=== PATIENT | male | born 1985 | race Caucasian/White ===

== ENCOUNTER 2024-12-13 11:46 | Outpatient (OUT) | payer OTHER, SELFPAY ==
--- OUTSIDE RECORDS SUMMARY | 2009-12-26 19:00 | XMS_ITS | Continuity of Care Document ---
Author Organization [facility] Address [address] [place] [address] Phone Care Team Providers Care Paint Tester Name Role Phone Visci DO DO, Jonathan Unavailable Unavailable Procedures Procedure Date OFFICE/OUTPATIENT VISIT, EST HEP B VACCINE, ADULT, IM Advance Directives Directive Yes / No Effective Date File Name No Information Encounters Encounter Description Practice Location Reason(s) For Visit Diagnoses Date Provider Providers Copied on Encounter OFFICE/OUTPATI ENT VISIT, [facility], [address], [place], [id number], tel:[phone] [facility] No Information Heaven CAUSEY Jonathan. [address], [place], [id number], [place]. tel:[phone] Family History Family Member Type Diagnosis Age At Onset No Information Payers Payer name Insurance type Covered green party ID Authoriza tion(s) No Information Social History [...]
--- OUTSIDE RECORDS SUMMARY | 2024-12-13 11:53 | XMS_ITS | Patient Health Record ---
Author Organization [facility] [place] Address [address] [place] [address] Care Team Providers Care Slide Fasteners Inspector Name Role Phone Chet Oliveira Primary Care Provider [phone] Allergies No Known Allergies Reason For Referral No Information Medications Medication SIG (Take, Route, Frequency, Duration) Notes Start Date End Date Status Fexofenadine HCl 60 MG 1 tablet Orally every bryson cortez; Duration: 90 days ActiveMupirocin 2 %1 application Externally Twice a day; Duration: 30 days 5ActiveMontelukast Sodium 10 MG1 tablet Orally at bedtime; Duration: 90 daysActiveMetoprolol Tartrate 25 MG1 tablet with food Orally Twice a day; Duration: 90 daysActiveAzelastine-Fluticasone 137-50 MCG/ACT1 spray in each nostril Nasally Twice a day; Duration: 90 daysActive Social [...] year?2 to 4 times a month (2 points)Dtxvmt6Chxdabrqkeohvc Negative Problems Problem Type SNOMED Code ICD Code Onset Dates Problem Status W/U Status Risk Notes Problem Allergic rhinitis (45957081) Allergic rhi nitis (J30.9) ActiveconfirmedProblemElevated blood pressure reading without diagnosis of hypertension (296108665)Borderline hypertension (R03.0)ActiveconfirmedProblem Acute bronchiolitis (5249982)Acute bronchiolitis (J21.9)Activeconfirmed Vital Signs Blood pressure diastolic 82 mm Hg 12/13/2024 Nrtbpd66 in12/13/2024lood pressure mm Hg12/13/20247346Jhewmp384.4 lbs 12/13/2024BMI29.03 kg/m212/13/2024 Encounters Encounter Location Date Provider Diagnosis [facility] [address] [place] [address] 12/18/[address] [facility] [place] [address] 03/10/2024Doug HoyAcute otitis media, unspecified otitis media type H66.90 [place] [address] [place] [address] 04/09/2024Doug HoyAcute otitis media, unspecified otitis media type H66.[address] [address] 04/10/2024Doug [place] [address] [place] [address]/Doug [address] [address]/Doug HoyAcute otitis media, unspecified otitis media type H66.90 and Otalgia, unspecified laterality H92.[address] [address]/04/2024 Chet HoyAcute non-recurrent sinusitis, unspecified location J01.90 and Nasal congestion R09.81 Assessments Encounter Date Diagnosis (ICD Code) Assessment Notes Treatment Notes Treatment Clinical Notes Section Notes 03/02/2024 Acute otitis media, unspecified otitis media type (ICD-10 - H66.90) You have been prescribed antibiotics for otitis media. Antibiotics may bother your stomach, so try taking them with a light meal (unless instructed otherwise by your pharmacist). It is important to take them until they are finished. You can use mbzw-dgz-qhbcpcr acetaminophen or ibuprofen if needed for pain. You have been prescribed antibiotics. You should be extra vigilant about hand washing or using hand patrol deputy sheriff gel. You should follow up with your Primary Care Physician or return to clinic if not improving in the next 3-5 days.5Acute non- recurrent sinusitis, unspecified location (ICD-10 - J01.90)Rest and drink more liquids, especially water. You may use a humidifier or vaporizer to help keep th e drainage moist. Soeg-vuz-ifpxpqf Nasal Saline may help the stuffy and runny nose. Use Ibuprofen and or Tylenol as needed for fever, chills, body aches or pain. Children 5 years old should not be given xmsn-nxc-lfildhe cough and cold medications such as guaifenesin and dextromethorphan. If you're over age 5, you may try ngrx-rcn-saqpler cold medications such as guaifenesin and dextromethorphan, [...] if symptoms do not improve within 3-5 days5Acute otitis media, unspecified otitis media type (ICD-10 - H66.90)5Acute otitis media, unspecified otitis media type (ICD-10 - H66.90)12/13/2024Nasal congestion (ICD- 10 - R09.81)03/02/2024Otalgia, unspecified laterality (ICD-10 - H92.09) Plan Of Treatment Pending Test Test Name Order Date CMP (COMPLETE METABOLIC PANEL) HEMOGLOBIN A1C (GLYCO) 06/04/2023 LIPID PANEL (CHOL/TRIG/HDL/LDL) 06/04/19 24 CBC WITH DIFF 06/04/2023 PSA, PROSTATE-SPECIFIC ANTIGEN 4 CBC AUTO DIFF 12/13/2024 CRP 12/13/2024 SED RATE WESTERGREN 12/13/2024 THYROID PANEL (T4/TSH/FREE T3) 4 XR sinus min 3V 12/13/2024 Insurance Providers Payer Name Payer Address Payer Phone Subscriber Number Group Number Insured Name Patient Relationship to Insured Coverage Start Date Coverage End Date [employer] [address] [place] [address] [id number] Adryan Wolf Self - patient is the insured Medical (General) History Medical History History ICD Code Allergic rhinitis J30.9 Adenoid hypertrophy J35.2 Borderline hypertension R03.0 Surgical History Surgery Date(Month/Year) Septoplasty, Tonsillectomy, Eustachian t ube dilation 06/25/2018
--- OUTSIDE RECORDS SUMMARY | 2024-12-13 11:53 | XMS_ITS | Clinical Summary ---
Author Organization [facility] tem Address [facility] [address] [place] [address] Care Team Providers Care Recruitment Assistant Name Role Phone Emeterio Oliveira MD Primary Care Provider [phone] Allergies No known active allergies Medications * This document contains information received from the source organization and may not represent a complete record from that organization. MedicationSigDispense QuantityRefillsLast FilledStart DateEnd DateStatus montelukast (SINGULAIR) 10 mg tablet Indications:Allergic rhinitis, unspecified seasonality, unspecified triggerTake 1 tablet (10 mg total) by mouth daily. 30 tablet Active fexofenadine (VIDYA) 60 mg tablet Indications:Allergic rhinitis, unspecified seasonality, unspecified triggerTake 1 tablet (60 mg total) by mouth daily. 60 tablet Active weed pollen-short ragweed 12 Amb a 1 unit tablet, sublingual Indications:Seasonal allergic rhinitis due to pollenPlace 12 Unit under the tongue nightly. 30 tablet Active Additional Information Patient not taking.Reported on 04/05/2024 azelastine-fluticasone (DYMISTA) 137-50 mcg/spray spray,non-aerosol Indications:Seasonal allergic rhinitis due to pollenAdminister 1 spray into each nostril 2 (two) times a day. 23 g Active metoprolol tartrate (LOPRESSOR) 25 mg tablet 10/04/2021ctive pantoprazole (PROTONIX) 40 mg EC tablet 10/18/2021ctive amoxicillin-pot clavulanate (AUGMENTIN) 875-125 mg per tablet 5Active Active Problems ProblemNoted DateDiagnosed DateMEE (middle ear effusion), eshhumtkf32/07/2022 Sbanuzycy64/07/2022llergic mvduqvyi50/09/2020S/P tonsillectomy and zvhsvnnsxuclt98/23/2019S/P nasal ztwflyjnfnh46/23/2019Eustachian tube jrzyahcyepc80/11/2017 Resolved Problems ProblemNoted DateDiagnosed DateResolved DateAcute NÉSTOR (middle ear effusion), leftChronic qsblftdjz37Chronic otitis mediaDeviated ofrrdj44Tonsillar hqpujhxhcee96 Family History Medical HistoryRelationNameCommentsDiabetesBrotherHeart diseaseBrotherKidney failureFatherCancerMotherbreastHeart diseaseMotherRelationNameStatusComments BrotherFatherMother Social History Tobacco UseTypesPacks/DayYears UsedDateSmoking Tobacco: FormerSmokeless Tobacco: FormerChew Tobacco Cessation:Counseling Given: Not Answered Alcohol UseStandard Drinks/WeekCommentsNot Currently0 (1 standard drink = 0.6 oz pure alcohol)AUDIT-CAnswerDate RecordedFrequency of Alcohol ConsumptionNever 06/05/2018Average Number of DrinksNot on file06/05/2018Frequency of Binge DrinkingNot on file06/05/2018PHQ-2AnswerDate RecordedTotal Qhhcb488 ChildcareAnswerDate CbvloustLapeuekzlEkikddk45/11/2019EmploymentAnswerDate MtkvtwsrMxuifymvqrMwbyngv45/11/2019Hunger ScreeningAnswerDate RecordedWithin the past 12 months we worried whether our food would run out before we got money to buy more.Never True03/07/2022Within the past 12 months the food we bought just didn't last and we didn't have money to get more.Never True3Purpose - LifeAnswerDate RecordedPurpose and direction in fkfoVmutadb90/11/2021ex and Gender InformationValueDate RecordedSex Assigned at BirthNot on fileLegal Sex Male09/15/2014 11:35 AM EDTGender IdentityNot on fileSexual OrientationNot on file Last Filed Vital Signs Vital SignReadingTime TakenCommentsBlood Ezplcgxv468/8412/ 9:15 AM EST Gmifo4138/16/2019 4:45 PM ZYHViscmspupgh36.3 ??C (97.3 ??F)06/25/2018 2:42 PM EDTRespiratory Hric837704/05/2024 4:04 PM ESTOxygen Bjmrmxahrl90%06/25/2018 4:45 PM EDTInhaled Oxygen Concentration--Ijkicv09.6 kg (182 lb)04/05/2024 4:04 PM EST Ckzurn809.7 cm (5' 8 )04/05/2024 4:04 PM ESTBody Mass Index27.67004/05/2024 4:04 PM EST Plan of Treatment Health MaintenanceDue DateLast DoneCommentsDepression Etehncgce25/04/1999Adult BMI Follow Up Plan2004COVID-19 Vaccine ( season)2024 01/14/2021Influenza Xgcrbrv0510/11/2024dult BMI Wmwazatky00/24/ Tobacco Myrzxxjov41/24/DTaP,Tdap and Td Vaccines (8 - Td or Tdap) , 08/15/2009, 07/14/1992, Additional history exists Medical Devices Not on file Insurance Care Teams Team MemberRelationshipSpecialtyStart DateEnd Emeterio Oliveira MD PCP - GeneralFamily Medicine06/23/18
--- OUTSIDE RECORDS SUMMARY | 2024-12-13 11:53 | XMS_ITS | Clinical Summary ---
Author Organization [facility] Address [address] [place], [place] [address] Care Team Providers Care Fulfillment Specialist Name Role Phone Felix Bridges Primary Care Provider [phone] Social History Tobacco UseTypesPacks/DayYears UsedDateSmoking Tobacco: Never AssessedSex and Gender InformationValueDate RecordedSex Assigned at BirthNot on fileLegal Sex Male01/12/2012 9:36 AM ESTGender IdentityNot on fileSexual OrientationNot on file Plan of Treatment Health MaintenanceDue DateLast DoneCommentsAnxiety Bhjlbmamo27/04/2005Depression Xngcagabm68/04/2005HIV Olrsthkkl97/04/2005Hepatitis C Ajjxbbyer90/04/2005 DTaP,Tdap,Td Vaccine (1 - Tdap)2005Hepatitis B Vaccine (1 of 3 - 19+ 3- dose series)2005HPV Vaccine (1 - 3-dose SCDM series)2013Lipid Dmsqlnbjy49/04/2022Covid-19 Vaccine ( - 2024- season)2024Influenza Vaccine (#1)2024 Care Teams Team MemberRelationshipSpecialtyStart DateEnd Date Felix Bridges [address] [place] [address] PCP - General05/22/00
--- NOTE | 2024-12-13 12:01 | XR_ITS ---
The [address] [address] Patient Name: ROBIN MATOS MRN: [id number] date: 1985 Sex: M Assigned Patient Location: LAB Current Patient Location: Accession/Order Number: [id number] Exam Date: 12/13/2024 12:12 Report Date: 12/14/2024 08:06 At the request of: MELA NAQVI MD Procedure: XR sinus min 3V PARANASAL SINUSES - 4 views COMPARISON: CT 06/19/2018 CLINICAL DATA: Left-sided sinus pressure. Gonzalez, Renuka's, lateral and submental vertex views were obtained. There is appropriate pneumatization of the paranasal sinuses. A polypoid density is seen at the base of the right maxillary sinus on the Gonzalez' view. This correlates with a mucous retention cyst or polyp on the comparison CT. There is subtle asymmetry projecting at the inferior left ethmoid region on the Gonzalez' view. This might correlate with the left sphenoid mucous retention cyst or polyp on the prior. No other mucosal thickening is identified. No fluid levels are seen. No nasal septal deviation is noted. XR/XR sinus min 3V IMPRESSION: CONTINUED RIGHT MAXILLARY AND PROBABLE LEFT SPHENOID MUCOUS RETENTION CYSTS OR POLYPS. NO ADDITIONAL PLAIN FILM EVIDENCE OF SINUS DISEASE. Impression dictated by: Cecilia Karimi M.D. 12/14/2024 8:06 AM Dictation Location: [place] [address] Electronically authenticated by: [id number] Y Date: 12/14/2024 08:06
[2024-12-13 12:29] LABS: Hematocrit 44.0 % (42.0-54.0); Hemoglobin 15.6 g/dL (14.0-18.0); Immature Granulocytes Abs Auto 0.01 10^3/uL (0.00-0.03); Immature Granulocytes Pct Auto 0.1 % (0.0-0.5); Lymphocytes Absolute Auto 1.6 10^3/uL (1.2-3.8); Mean Corpuscular HGB Conc 35.5 g/dL (29.9-35.2); Mean Corpuscular Hemoglobin 31.3 pg (25.9-34.0); Mean Corpuscular Volume 88.2 fL (80.0-94.0); Platelet Count 290 10^3/uL (150-450); Red Blood Count 4.99 10^6/uL (4.70-6.10); White Blood Count 6.9 10^3/uL (4.0-11.0)
== END 2024-12-13 11:47 | disposition home or self-care (01) ==
PROVIDERS: PCP Family Medicine; Visit Provider Family Medicine
DX: J01.90 Acute sinusitis, unspecified (principal)
CPT/HCPCS: 36415; 70220; 85025; 85652; 86140

== ENCOUNTER 2024-12-15 15:49 | Outpatient (OUT) | payer OTHER, SELFPAY ==
--- OUTSIDE RECORDS SUMMARY | 2009-12-26 19:00 | XMS_ITS | Continuity of Care Document ---
Author Organization [facility] Address [address] [place] [address] Phone Care Team Providers Care Multiple Slide Operator Name Role Phone Visci DO DO, Jonathan Unavailable Unavailable Procedures Procedure Date OFFICE/OUTPATIENT VISIT, EST HEP B VACCINE, ADULT, IM Advance Directives Directive Yes / No Effective Date File Name No Information Encounters Encounter Description Practice Location Reason(s) For Visit Diagnoses Date Provider Providers Copied on Encounter OFFICE/OUTPATI ENT VISIT, [facility], [address], [place], [id number], tel:[phone] [facility] [place] No Information Heaven CAUSEY Jonathan. [address], [place], [id number], [place]. tel:[phone] Family History Family Member Type Diagnosis Age At Onset No Information Payers Payer name Insurance type Covered republican ID Authoriza tion(s) No Information Social History Type Description Quantity Date Captured Comments Sex Male Smoking Status No Information Chief Complaint And Reason For Visit No Information Reason For Referral Reason For Referral No Information History Of Present Illness Encounter Date Complaint History Of Prese nt Illness No Information Functional Status Date Functional Assessmen t No Information Instructions Date Instruction Additional Infor mation No Information Assessments Type Assessment Date No Information Patient Care Teams Name Effective Dates (start - stop) Status Members No Information
--- OUTSIDE RECORDS SUMMARY | 2024-12-13 06:15 | XMS_ITS ---
Author Organization [facility] [place] Address [address] [place] [address] Care Team Providers Care Weatherstrip Machine Operator Name Role Phone Chet Naqvi Primary Care Provider Allergies No Known Allergies Results Component Value Reference Range Notes CBC AUTO DIFF Reviewed date:12/13/2024 02:07:00 PM Interpretation: Performing Lab: Notes/Report: [facility] , White Blood Count 6.9 4.0-11.0 10 3/uL Red Blood Count4.994.70-6.10 10 6/vHVfuincdigc25.614.0-18.0 g/bQJjllxbxhoh99.0 42.0-54.0 %Mean Corpuscular Rnmjrr01.280.0-94.0 fLMean Corpuscular Hemoglobin 31.325.9-34.0 pgMean Corpuscular HGB Conc35.529.9-35.2 g/dLRed Cell Distribution Width12.811.0-15.0 %Platelet Jjlhh840645-260 10 3/uLMean Platelet Volume9.29.5- 13.5 fLNeutrophils Percent Auto68.743.0-75.0 %Lymphocytes Percent Auto23.920.5- 60.0 %Monocytes Percent Auto6.71.7-12.0 %Eosinophils Percent Auto0.30.9-7.0 % Basophils Percent Auto0.30.2-2.0 %Immature Granulocytes Pct Auto0.10.0-0.5 % Neutrophils Absolute Auto4.71.4-6.5 10 3/uLLymphocytes Absolute Auto1.61.2-3.8 10 3/uLMonocytes Absolute Auto0.50.3-0.8 10 3/uLEosinophils Absolute Auto0.00.0- 0.7 10 3/uLBasophils Absolute Auto0.00.0-0.1 10 3/uLImmature Granulocytes Abs Auto0.010.00-0.03 10 3/uLPerforming Lab:see noteML - [facility] LBCRP Reviewed date:12/13/2024 02:07:00 PM Interpretation: Performing Lab: Notes/Report: [facility] ,C Reactive Protein<0.50<=0.50 mg/dLPerforming Lab:see noteML - [facility] LBXR sinus min 3V Reviewed date:12/14/2024 01:51:14 PM Interpretation: Performing Lab: Notes/Report: Source Facility: [facility]-[address] [place] [address] [place] [address] XRay Report Signed Patient: ADRYAN MATOS MR#: [id number] : 1985 Acct:[id number] Age/Sex: 39 / M ADM Date: 12/13/24 Loc: LAB Attending Dr: Mela Naqvi M.D. Ordering Physician: Mela Naqvi M.D. Date of Service: 12/13/24 Procedure(s): XR sinus min 3V Accession Number(s): [id number] cc: Mela Naqvi M.D. [place] [address] Patient Name: ADRYAN MATOS MRN: [id number] date: 1985 Sex: M Assigned Patient Location: LAB Current Patient Location: Accession/Order Number: [id number] Exam Date: 12/13/2024 12:12 Report Date: 12/14/2024 08:06 At the request of: MELA NAQVI MD Procedure: XR sinus min 3V PARANASAL SINUSES - 4 views COMPARISON: CT 06/19/2018 CLINICAL DATA: Left-sided sinus pressure. Gonzalez, Renuka's, lateral and submental vertex views were obtained. There is appropriate pneumatization of the paranasal sinuses. A polypoid density is seen at the base of the right maxillary sinus on the Gonzalez' view. This correlates with a mucous retention cyst or polyp on the comparison CT. There is subtle asymmetry projecting at the inferior left ethmoid region on the Gonzalez' view. This might correlate with the left sphenoid mucous retention cyst or polyp on the prior. No other mucosal thickening is identified. No fluid levels are seen. No nasal septal deviation is noted. XR/XR sinus min 3V IMPRESSION: CONTINUED RIGHT MAXILLARY AND PROBABLE LEFT SPHENOID MUCOUS RETENTION CYSTS OR POLYPS. NO ADDITIONAL PLAIN FILM EVIDENCE OF SINUS DISEASE. Impression dictated by: Cecilia Karimi M.D. 12/14/2024 8:06 AM Dictation Location: [place] [address] Electronically authenticated by: [id number] Y Date: 12/14/2024 08:06 Dictated By: Cecilia Karimi M.D. Signed By: 12/14/24808 DD/ 5 TD/TT: Software Sales Consultant: REASON FOR VISIT Presents to office with for pressure above left eye and in left oriental orthodox. Also having some vision change to that eye. Said things seem brighter then usual Medications Medication SIG (Take, Route, Frequency, Duration) Notes Start Date End Date Status Fexofenadine HCl 60 MG 1 tablet Orally every bryson cortez; Duration: 90 days ActiveAzelastine-Fluticasone 137-50 MCG/ACT1 spray in each nostril Nasally Twice a day; Duration: 90 daysActiveMupirocin 2 %1 application Externally Twice a day; Duration: 30 days5ActiveMontelukast Sodium 10 MG1 tablet Orally at bedtime; Duration: 90 daysActiveMetoprolol Tartrate 25 MG1 tablet with food Orally Twice a day; Duration: 90 daysActive Social History Tobacco Use: Social History Observation Description Date Details (start date - stop date) Never Smoker NA - NA Tobacco Use/Smoking Question Answer Notes Patient is a nonsmoker Tobacco use other than smoking: Question Answer Notes Are you an other tobacco user? No AUDIT-C (Standard) Question Answer Notes Did you have a drink containing alcohol in the p ast year? Yes How often did you have six or more drinks on one occasion in the past year?Never (0 point)How many drinks did you have on a typical day when you were drinking in the past year?1 or 2 drinks (0 point)How often did you have a drink containing alcohol in the past year?2 to 4 times a month (2 points)Uvqlxi5Uvmewfpkncajfm Negative Vital Signs Weight 185.4 lbs 12/13/2024 Height 67 in 12/13/2024 Blood pressure systolic 124 mm Hg 12/14/19 25 Blood pressure diastolic 82 mm Hg 025 BMI 29.03 kg/m2 12/13/2024 Encounters Encounter Location Date Provider Diagnosis [facility] [address] [place] [address] 12/13/2024 Chet Naqvi Acute non-recurrent sinusitis, unspecified location J01.90 and Nasal congestion R09.81 Assessments Encounter Date Diagnosis (ICD Code) Assessment Notes Treatment Notes Treatment Clinical Notes Section Notes 12/13/2024 Acute non-recurrent sinusitis, unspecified location (ICD-10 - J01.90) Rest and drink more liquids, especially water. You may use a humidifier or vaporizer to help keep the drainage moist. Hbzb-ryw-mcfshfh Nasal Saline may help the stuffy and runny nose. Use Ibuprofen and or Tylenol as needed for fever, chills, body aches or pain. Children 5 years old should not be given rpme-vlu-giianfr cough and cold medications such as guaifenesin and dextromethorphan. If you're over age 5, you may try sayw-spv-vrmsjzs cold medications such as guaifenesin and dextromethorphan, or multi-symptom cold reliever such as Dayquil to help reduce the symptoms. Antibiotics have been pre scribed. You should take these until completed and follow the directions. Antibiotics can sometimescause upset stomach, and in rare cases, serious allergic reactions or serious gastrointestinal problems. If you start having severe abdominal pain, severe vomiting, or bloody diarrhea, you should be r eevaluated by your physician or urgent care immediately. Follow up with your Primary Care Provider or return to clinic if symptoms do not improve within 3-5 days12/13/2024Nasal congestion (ICD-10 - R09.81) Plan Of Treatment Treatment Notes Assessment Notes Acute non-recurrent sinusiti s, unspecified location Rest and drink more liquids, especially water. You may use a humidifier or vaporizer to help keep the drainage moist. Khtx-xfy-jdjwuwd Nasal Saline may help the stuffy and runny nose. Use Ibuprofen and or Tylenol as needed for fever, chills, body aches or pain. Children 5 years old should not be given bczz-tkd-rjtubbr cough and cold medications such as guaifenesin and dextromethorphan. If you're over age 5, you may try czjl-qki-cfhwnnw cold medications such as guaifenesin and dextromethorphan, or multi-symptom cold reliever such as Dayquil to help reduce the symptoms. Antibiotics have been prescribed. You should take these until completed and follow the directions. Antibiotics can sometimes cause upset stomach, and in rare cases, serious allergic reactions or serious gastrointestinal problems. If you start having severe abdominal pain, severe vomiting, or bloody diarrhea, you should be reevaluated by your physician or urgent care immediately. Follow up with your Primary Care Provider or return to clinic if symptoms do not improve within 3-5 days Pending Test Test Name Order Date SED RATE BHARAT 12/13/2024 Next Appt Details Follow Up: 3-5 days if not i mproving, Reason: Progress Notes * CARLO Adryan TDOB: [birth year] (39 yo M)Acc No.[id number]:12/13/2024 Progress Note Patient: Adryan BLEVINS :?Mela Naqvi ([facility]), MDDOB:1985???Age: 39 Y???Sex:MaleDate:12/13/2024Phone:[phone]:[address] [place] [address]Check In:11:06 AM ESTCheck Out:11:33 AM EST Subjective: * Chief Complaints: * P resents to office with for pressure above left eye and in left oriental orthodox. Also having some vision change to that eye. Said things seem brighter then usual * HPI: ???General:? 4 days - not quite as bad today - not had in the past Maybe allergies a bit worse more nasal congestion Left sided oriental orthodox and above aaron eye - pressure. ???Sinusitis:? The patient complains of symptoms of sinus infection. The symptoms have been present for 1-2 days. The symptoms are moderate. Symptomatic treatment has included OTC medication. Associated symptoms include headache, facial pain, runny nose, nasal congestion. * ROS: ???Skin:?Rash?denies.?ENT:?Comments?See HPI for details.?Cardiovascular:?Edema?denies.?Palpitations?denies.?Respiratory:?Chest pain?denies.?Cough?denies.?Wheezing denies.?Gastrointestinal:?Abdominal pain?denies.?Nausea?denies.?Vomiting?denies.? * Active Problem List J30.9 Allergic rhinitis Modified On:03/31/2023W/U Status:rhabqgnsiJ33.0Borderline hypertension Modified On:03/31/2023/U Status:vadbqzunmE68.9Acute bronchiolitis Modified On:03/31/2023/U Status:confirmed * Medical History: * Surgical History: S eptoplasty, Tonsillectomy, Eustachian tube dilation 06/25/2018 * Hospitalization/Major Diagno stic Procedure: * Family History: F ather: alive, kidney disease, prostate cancer. M other: alive, breast cancer. * Social History: ???Tobacco Use:?Tobacco use other than smoking?Are you an other tobacco user??No ?Tobacco Use/Smoking?Patient is a?nonsmoker ???Drug/Alcohol:?AUDIT-C (Standard)?Did you have a drink containing alcohol in the past year??Yes ?How often did you have six or more drinks on one occasion in the past year??Never (0 point) ?How many drinks did you have on a typical daywhen you were drinking in the past year??1 or 2 drinks (0 point) ?How often did you have a drink containing alcohol in the past year??2 to 4 times a month (2 points) ?Points?2 ?Interpretation?Negative * Medications: T akingAzelastine-Fluticasone 137-50 MCG/ACT Suspension 1 spray in each nostril Nasally Twice a day Fexofenadine HCl 60 MG Tablet 1 tablet Orally every evening Metoprolol Tartrate 25 MG Tablet 1 tablet with food Orally Twice a day Montelukast Sodium 10 MG Tablet 1 tablet Orally at bedtime Mupirocin 2 % Ointment 1 application Externally Twice a day Taking Azelastine-Fluticasone 137-50 MCG/ACT Suspension 1 spray in each nostril Nasally Twice a day Taking Fexofenadine HCl 60 MG Tablet 1 tablet Orally every evening Taking Metoprolol Tartrate 25 MG Tablet 1 tablet with food Orally Twice a day Taking Montelukast Sodium 10 MG Tablet 1 tablet Orally at bedtime Taking Mupirocin 2 % Ointment 1 application Externally Twice a day DiscontinuedAmoxicillin-Pot Clavulanate 875-125 MG Tablet 1 tablet Orally every 12 hrs Benzonatate 200 MG Capsule 1 capsule Orally Three times a day hydrOXYzine HCl 10 MG Tablet 1 tablet as needed Orally Once a day Paxlovid (300/100)(Nirmatrelvir&Ritonavir 300/100) 20 x 150 MG & 10 x 100MG Tablet Therapy Pack 3 tablets Orally Twice a day predniSONE 20 MG Tablet 2 tablets Orally Once a day Medication List reviewed and reconciled with the patientDiscontinued Amoxicillin-Pot Clavulanate 875-125 MG Tablet 1 tablet Orally every 12 hrs Discontinued Benzonatate 200 MG Capsule 1 capsule Orally Three times a day Discontinued hydrOXYzine HCl 10 MG Tablet 1 tablet as needed Orally Once a day Discontinued Paxlovid (300/100)(Nirmatrelvir&Ritonavir 300/100) 20 x 150 MG & 10 x 100MG Tablet Therapy Pack 3 tablets Orally Twice a day Discontinued predniSONE 20 MG Tablet 2 tablets Orally Once a day Medication List reviewed and reconciled with the patient * Allergies: N .K.D.A.no[Allergies Verified] Objective: * Vitals: W t:185.4lbs, Ht: 67 in, BP:124/82mm Hg, BMI:29.03Index, Ht-cm: 170.18 cm, Wt-k.1 kg. * Examination: ???General Examination: ?GENERAL APPEARANCE:? in no acute distress, well developed,well nourished.?ENT:? ear and nose external appearance normal, tympanic membranes clear bilaterally, facial tenderness to palpation over sinuses.?EYES:? pupils equal, round, reactive to light and accomodations.?ORAL CAVITY:? mucosa moist.?NECK:?neck supple, full range of motion, no cervical lymphadenopathy.?LUNGS:?clear to auscultation bilaterally.?CARDIO:? no murmurs, regular rate and rhythm, S1, S2 normal.?ABDOMEN:? soft, nontender , not distended, bowel sounds are active.?SKIN:? no suspicious lesions, warm and dry.?EXTREMITIES:? no clubbing, cyanosis, or edema.?NEUROLOGIC:? nonfocal, motor strength of upper/lower extremities intact , sensory exam intact.? Assessment: * Assessment: 1.?Acute non-recurrent sinusitis, unspecified location - J01.90 (Primary)???2.&# 160;Nasal congestion - R09.81??? Plan: * Treatment: ?LAB: SED RATE WESTERGREN ?LAB: CBC AUTO DIFF (Collection Date & Time - 12/13/2024 11:57 AM) ?LAB: CRP (Collection Date & Time - 12/13/2024 11:57 AM) ?Imaging: XR sinus min 3V (Performed Date - 12/14/2024)* FRANCISCO Notes:Rest and drink more liquids, especially water. You may use a humidifier or vaporizer to help keep the drainage moist. Qjnz-iyn-luimcst Nasal Saline may help the stuffy and runny nose. Use Ibuprofen and or Tylenol as needed for fever, chills, body aches or pain. Children 5 years old should notbe given fxqg-ois-lnxhwwp cough and cold medications such as guaifenesin and dextromethorphan. If you're over age 5, you may try dcpd-pfs-qvrxqnz cold medications such as guaifenesin and dextromethorphan, or multi-symptom cold reliever such as Dayquil to help reduce the symptoms. Antibiotics have been prescribed. You should take these until completed and follow the directions. Antibiotics can sometimes cause upset stomach, and in rare cases, serious allergic reactions or serious gastrointestinal problems. If you start having severe abdominal pain, severe vomiting, or bloody diarrhea, you should be reevaluated by your physician or urgent care immediately. Follow up with your Primary Care Provider or return to clinic if symptoms do not improve within 3-5 days?? * Labs: * L ab: CRP (Collection Date & Time - 12/13/2024 11:57 AM) ?Lab: CBC AUTO DIFF (Collection Date & Time - 12/13/2024 11:57 AM) * Procedure Codes: 3 079F DIAST BP 80-89 MM [id number] SYST BP LT 130 MM HG * Preventive Medicine: ??Screenings/Counseling:?BMI ACTION PLAN?Above Normal BMI Follow-up?Dietary management education, guidance, and counseling See treatment section of progress note for complete details of management plan. * Follow Up: 3 -5 days if not improving * * Sign off status: CompletedVisit Status:?CHK (Check Out) true * Provider: Linda Naqvi ([facility])MD Date: 1 02/13/2024 Generated for Printing/Faxing/eTransmitting on:?12/15/2024 03:52 PM EST History and Physical Notes * HPI (History of Present Illness) CategorySub-CategoryDetailNotesCategory NotesGeneral 4 days - not quite as bad today - not had in the past Maybe allergies a bit worse more nasal congestion Left sided oriental orthodox and above aaron eye - pressure Examination CategorySub-CategoryDetailNotesCategory NotesGeneral ExaminationGENERAL APPEARANCE:in no acute distress, well developed, well nourishedENT:ear and nose external appearance normal, tympanic membranes clear bilaterally, facial tenderness topalpation over sinusesEYES:pupils equal, round, reactive to light and accomodationsNECK:neck supple, full range of motion, no cervical lymphadenopathyCARDIO:no murmurs, regular rate and rhythm, S1, S2 normalLUNGS: clear to auscultation bilaterallyABDOMEN:soft, nontender , not distended, bowel sounds are activeNEUROLOGIC:nonfocal, motor strength of upper/lower extremities intact , sensory exam intactSKIN:no suspicious lesions, warm and dryEXTREMITIES: no clubbing, cyanosis, or edemaORAL CAVITY:mucosa moist
--- OUTSIDE RECORDS SUMMARY | 2024-12-14 08:50 | XMS_ITS ---
Author Organization The [facility] [place] Address [address] [place] [address] Care Team Providers Care Coremaker Bench Name Role Phone Chet Oliveira Primary Care Provider [phone] order Encounters Encounter Location Date Provider Diagnosis [facility] [address] [place] [address] 12/14/2024 Chet Oliveira Nasal cavity polyp J33.0 Assessments Encounter Date Diagnosis (ICD Code) Assessment Notes Treatment Notes Treatment Clinical Notes Section Notes 12/14/2024 Nasal cavity polyp (ICD-10 - J33 .0) Plan Of Treatment Pending Test Test Name Order Date CT SINUSES WO CON 12/14/2024 Progress Notes * Adryan WOLF TDOB: [birth year] (39 yo M)Acc No.[id number]:12/14/2024 Patient:?Adryan WOLF :1985???Age:39 Y???Sex:MalePhone:[phone] Address:[address] [place] [id number] Subjective: * Chief Complaints: * C T order * Medical History: * Surgical History: * Hospitalization/Major Diagno stic Procedure: * Medications: Objective: * Vitals: * Physical Examination: ??? Assessment: * Assessment: 1.?Nasal cavity polyp - J33.0 (Primary)??? Plan: * Treatment: ?Imaging: CT SINUSES WO CON * Procedure Codes: * true * Date:?Generated for Printing/Faxing/eTransmitting on:?12/15/2024 03:52 PM EST
--- NOTE | 2024-12-15 | CT_ITS ---
The [address] [address] Patient Name: ROBIN MATOS MRN: [id number] date: 1985 Sex: M Assigned Patient Location: CT Current Patient Location: Accession/Order Number: [id number] Exam Date: 12/15/2024 15:52 Report Date: 12/16/2024 10:09 At the request of: MELA NAQVI MD Procedure: CT sinus wo con CT PARANASAL SINUSES WITHOUT CONTRAST: CLINICAL HISTORY: J33.0 left-sided sinus pressure. COMPARISON: 06/19/2018 and plain films 12/14/2024 TECHNIQUE: Contiguous axial unenhanced images were obtained through the paranasal sinuses. Coronal reconstructions were also performed. This CT exam was performed using one or more following dose reduction techniques: Automated exposure control, adjustment of the mA and/or kV according to patient size, or use of iterative reconstruction technique. FINDINGS: There is appropriate development and pneumatization. There is continued polypoid change at the base of the right maxillary sinus, slightly increased in size from the prior. This could be mucus retention cysts and/or polyps. The polypoid mucosal change seen previously at the left sphenoid sinus has resolved. There is no new mucosal thickening or fluid levels. The ostiomeatal complexes are patent. There is no bony destruction. Nasal septal deviation is again seen to the right. No nasal cavity masses are identified. CT/CT sinus wo con IMPRESSION: RIGHT MAXILLARY MUCUS RETENTION CYSTS AND/OR POLYPS. NO OTHER ACUTE FINDINGS. Impression dictated by: Cecilia Karimi M.D. 12/16/2024 10:09 AM Dictation Location: [place] [address] Electronically authenticated by: [id number] Y Date: 12/16/2024 10:09
--- OUTSIDE RECORDS SUMMARY | 2024-12-15 15:52 | XMS_ITS | Patient Health Record ---
Author Organization The [facility] [place] Address [address] [place] [address] Care Team Providers Care Electrical Systems Designer Name Role Phone Chet Naqvi Primary Care Provider Allergies No Known Allergies Results Component Value Reference Range Notes CBC AUTO DIFF Reviewed date:12/13/2024 02:07:00 PM Interpretation: Performing Lab: Notes/Report: The [facility] , White Blood Count 6.9 4.0-11.0 10 3/uL Red Blood Count4.994.70-6.10 10 6/yJCjzbghwvff27.614.0-18.0 g/kEIyixyzjhkf32.0 42.0-54.0 %Mean Corpuscular Mxdhsx25.280.0-94.0 fLMean Corpuscular Hemoglobin 31.325.9-34.0 pgMean Corpuscular HGB Conc35.529.9-35.2 g/dLRed Cell Distribution Width12.811.0-15.0 %Platelet Txhci062401-131 10 3/uLMean Platelet Volume9.29.5- 13.5 fLNeutrophils Percent Auto68.743.0-75.0 %Lymphocytes Percent Auto23.920.5- 60.0 %Monocytes Percent Auto6.71.7-12.0 %Eosinophils Percent Auto0.30.9-7.0 % Basophils Percent Auto0.30.2-2.0 %Immature Granulocytes Pct Auto0.10.0-0.5 % Neutrophils Absolute Auto4.71.4-6.5 10 3/uLLymphocytes Absolute Auto1.61.2-3.8 10 3/uLMonocytes Absolute Auto0.50.3-0.8 10 3/uLEosinophils Absolute Auto0.00.0- 0.7 10 3/uLBasophils Absolute Auto0.00.0-0.1 10 3/uLImmature Granulocytes Abs Auto0.010.00-0.03 10 3/uLPerforming Lab:see noteML - [facility] LBCRP Reviewed date:12/13/2024 02:07:00 PM Interpretation: Performing Lab: Notes/Report: The [facility] ,C Reactive Protein<0.50<=0.50 mg/dLPerforming Lab:see noteML - [facility] LBXR sinus min 3V Reviewed date:12/14/2024 01:51:14 PM Interpretation: Performing Lab: Notes/Report: Source Facility: [facility]-[address] [place] [address] [place] [address] XRay Report Signed Patient: ADRYAN MATOS MR#: [id number] : 1985 Acct:[id number] Age/Sex: 39 / M ADM Date: 12/13/24 Loc: LAB Attending Dr: Mela Naqvi M.D. Ordering Physician: Mela Naqvi M.D. Date of Service: 12/13/24 Procedure(s): XR sinus min 3V Accession Number(s): [id number] cc: Mela Naqvi M.D. [place] [address] Patient Name: ADRYAN MATOS MRN: [id number] date: 1985 Sex: M Assigned Patient Location: LAB Current Patient Location: Accession/Order Number: [id number] Exam Date: 12/13/2024 12:12 Report Date: 12/14/2024 [...] Karimi M.D. 12/14/2024 8:06 AM Dictation Location: [place] [address] Electronically authenticated by: [id number] Y Date: 12/14/2024 08:06 Dictated By: Cecilia Karimi M.D. Signed By: 12/14/24808 DD/ 5 TD/TT: Mental Health Clinician:Erythrocyte Sedimentation Rate Reviewed date:12/13/2024 02:07:00 PM Interpretation: Performing Lab: Notes/Report: [facility] ,Erythrocyte Sedimentation Rate10<=15 mm/hrPerforming Lab:see noteML - [facility] LB Reason For Referral No Information Medications Medication [...] Question Answer Notes Patient is a nonsmoker Alcohol Screen (Audit-C) Question Answer Notes Did you have a drink containing alcohol in the p ast year? Yes How often did you have 6 or more drinks on one occasion in the past year?Never (0 point)How many drinks did you have on a typical day when you were drinking in the past year?1 or 2 drinks (0 point)How often did you have a drink containing alcohol in the past year?Never (0 point)Wrsdzf5YjhjnymsluuigbOmrcfuhsXgwcstg use other than smoking: Question Answer Notes [...] year?2 to 4 times a month (2 points)Gytlwx9Hthidnijyjtwam Negative Problems Problem Type SNOMED Code ICD Code Onset Dates Problem Status W/U Status Risk Notes Problem Allergic rhinitis (28654933) Allergic rhi nitis (J30.9) ActiveconfirmedProblemElevated blood pressure reading without diagnosis of hypertension (815790841)Borderline hypertension (R03.0)ActiveconfirmedProblem Acute bronchiolitis (6126488)Acute bronchiolitis (J21.9)Activeconfirmed Vital Signs Blood pressure diastolic 82 mm Hg 12/13/2024 Izbnic86 in12/13/2024lood pressure sqbxjolq581 mm Hg12/13/20246878Zdgvql353.4 lbs 12/13/2024BMI29.03 kg/m212/13/2024 Encounters Encounter Location Date Provider Diagnosis [place] [address] [place] [address] 03/02/2024 Chet Benedicty Acute otitis media, unspecified otitis media type H66.90 and Otalgia, unspecified laterality H92.[address] [address] 12/13/2024 Chet Naqvi Acute non-recurrent sinusitis, unspecified location J01.90 and Nasal congestion R09.[address] [address] 12/18/2023 Chet Benedicty [address] [place] [address] 03/10/2024Doug HoyAcute otitis media, unspecified otitis media type H66.90 [place] [address] [facility] [place] [address] 04/09/2024Doug HoyAcute otitis media, unspecified otitis media type H66.90 [place] [address] [facility] [place] [address] 04/10/2024[place]BS[place] [address] [facility] [place] [address]/Doug [place] [address] [facility] [place] [address]/05/2024Doug HoyNasal cavity polyp J33.[address] [place] [address]/05/2024 Chet Naqvi Assessments Encounter Date Diagnosis (ICD Code) Assessment [...] until they are finished. You can use uczt-tvy-bfzxgfg acetaminophen or ibuprofen if needed for pain. You have been prescribed antibiotics. You should be extra vigilant about hand washing or using hand performance architect gel. You should follow up with your Primary Care Physician or return to clinic if not improving in the next 3-5 days.5Acute non- recurrent sinusitis, unspecified location (ICD-10 - J01.90)Rest and drink more liquids, especially water. You may use a humidifier or vaporizer to help keep th e drainage moist. Gxkf-buk-wdxudxb Nasal Saline may help the stuffy and runny nose. Use Ibuprofen and or Tylenol as needed for fever, chills, body aches or pain. Children 5 years old should not be given zchf-twg-cipgzig cough and cold medications such as guaifenesin and dextromethorphan. If you're over age 5, you may try jiid-omd-zisnjyz cold medications such as guaifenesin and dextromethorphan, [...] media, unspecified otitis media type (ICD-10 - H66.90)12/14/2024Nasal cavity polyp (ICD-10 - J33.0)12/13/2024Nasal congestion (ICD-10 - R09.81)03/02/2024Otalgia, unspecified laterality (ICD-10 - H92.09) Plan Of Treatment Pending Test Test Name Order Date CMP (COMPLETE METABOLIC PANEL) 4 HEMOGLOBIN A1C (GLYCO) 06/04/2023 LIPID PANEL (CHOL/TRIG/HDL/LDL) 06/04/19 24 CBC WITH DIFF 06/04/2023 PSA, PROSTATE-SPECIFIC ANTIGEN 4 SED RATE WESTERGREN 12/13/2024 CT SINUSES WO CON 12/14/2024 THYROID PANEL (T4/TSH/FREE T3) 4 Insurance Providers Payer Name Payer Address Payer Phone Subscriber Number Group Number Insured Name Patient Relationship to Insured Coverage Start Date Coverage End Date [employer] [place] [address] [place] [address] [id number] Adryan Matos Self - patient is the insured Medical (General) History Medical History History ICD Code Allergic rhinitis J30.9 Adenoid hypertrophy J35.2 Borderline hypertension R03.0 Surgical History Surgery Date(Month/Year) Septoplasty, Tonsillectomy, Eustachian t ube dilation 06/25/2018
--- OUTSIDE RECORDS SUMMARY | 2024-12-15 15:52 | XMS_ITS | Clinical Summary ---
Author Organization [facility] tem Address [facility] [address] [place] [address] Care Team Providers Care Medicare Sales Executive Name Role Phone Emeterio Oliveira MD Primary Care Provider [phone] Allergies No known active allergies Medications * [...] Problems ProblemNoted DateDiagnosed DateMEE (middle ear effusion), ckciyfmcd86/07/2022 Pzwiezduv37/07/2022llergic akzhzlni37/09/2020S/P tonsillectomy and frywgpycifoye63/23/2019S/P nasal rtbatoforcy60/23/2019Eustachian tube poajjobklhn67/11/2017 Resolved Problems ProblemNoted DateDiagnosed DateResolved DateAcute NÉSTOR (middle ear effusion), leftChronic bjfnfvoir38Chronic otitis mediaDeviated dzxwms89Tonsillar jhbwdduhbgz21 Family History Medical HistoryRelationNameCommentsDiabetesBrotherHeart diseaseBrotherKidney failureFatherCancerMotherbreastHeart diseaseMotherRelationNameStatusComments BrotherFatherMother Social History Tobacco UseTypesPacks/DayYears UsedDateSmoking Tobacco: FormerSmokeless Tobacco: FormerChew Tobacco Cessation:Counseling Given: Not Answered Alcohol UseStandard Drinks/WeekCommentsNot Currently0 (1 standard drink = 0.6 oz pure alcohol)AUDIT-CAnswerDate RecordedFrequency of Alcohol ConsumptionNever 06/05/2018Average Number of DrinksNot on file06/05/2018Frequency of Binge DrinkingNot on file06/05/2018PHQ-2AnswerDate RecordedTotal Brocx929 ChildcareAnswerDate McarnzekTnduvgvzxDwoizev28/11/2019EmploymentAnswerDate NivwxcbpRpkromogcpJzclubq97/11/2019Hunger ScreeningAnswerDate RecordedWithin the past 12 months we worried whether our food would run out before we got money to buy more.Never True03/07/2022Within the past 12 months the food we bought just didn't last and we didn't have money to get more.Never True3Purpose - LifeAnswerDate RecordedPurpose and direction in igthFeusyhe36/11/2021ex and Gender InformationValueDate RecordedSex Assigned at BirthNot on fileLegal Sex Male09/15/2014 11:35 AM EDTGender IdentityNot on fileSexual OrientationNot on file Last Filed Vital Signs Vital SignReadingTime TakenCommentsBlood Aedbuccb397/8412/ 9:15 AM EST Zvlvp5928/16/2019 4:45 PM YWRZwgpsnyuzyw70.3 ??C (97.3 ??F)06/25/2018 2:42 PM EDTRespiratory Tapi645804/05/2024 4:04 PM ESTOxygen Lhqvpydgfw56%06/25/2018 4:45 PM EDTInhaled Oxygen Concentration--Uvrqlw20.6 kg (182 lb)04/05/2024 4:04 PM EST Qpvsqw163.7 cm (5' 8 )04/05/2024 4:04 PM ESTBody Mass Index27.67004/05/2024 4:04 PM EST Plan of Treatment Health MaintenanceDue DateLast DoneCommentsDepression Pryxhugso00/04/1999Adult BMI Follow Up Plan2004COVID-19 Vaccine ( season)2024 01/14/2021Influenza Ldxnuwk3810/11/2024dult BMI Dhnzvectb69/24/ Tobacco Otrfuoxbj01/24/DTaP,Tdap and Td Vaccines (8 - Td or Tdap) , 08/15/2009, 07/14/1992, Additional history exists Medical Devices Not on file Insurance Care Teams Team MemberRelationshipSpecialtyStart DateEnd Emeterio Oliveira MD PCP - GeneralFamily Medicine06/23/18
--- OUTSIDE RECORDS SUMMARY | 2024-12-15 15:52 | XMS_ITS | Clinical Summary ---
Author Organization [facility] Address [address] [place], [place] [address] Care Team Providers Care Non Profit Director Name Role Phone Felix Bridges Primary Care Provider [phone] Social History Tobacco UseTypesPacks/DayYears UsedDateSmoking Tobacco: Never AssessedSex and Gender InformationValueDate RecordedSex Assigned at BirthNot on fileLegal Sex Male01/12/2012 9:36 AM ESTGender IdentityNot on fileSexual OrientationNot on file Plan of Treatment Health MaintenanceDue DateLast DoneCommentsAnxiety Qdzrcmjzt58/04/2005Depression Vacgqtgvi73/04/2005HIV Karnnmkoe27/04/2005Hepatitis C Dezqwapec78/04/2005 DTaP,Tdap,Td Vaccine (1 - Tdap)2005Hepatitis B Vaccine (1 of 3 - 19+ 3- dose series)2005HPV Vaccine (1 - 3-dose SCDM series)2013Lipid Bniudphnq74/04/2022Covid-19 Vaccine ( - 2024- season)2024Influenza Vaccine (#1)2024 Care Teams Team MemberRelationshipSpecialtyStart DateEnd Date Felix Bridges [address] [place] [address] PCP - General05/22/00
== END 2024-12-15 15:50 | disposition home or self-care (01) ==
LOC: CT 15:49
PROVIDERS: PCP Family Medicine; Visit Provider Family Medicine
DX: J33.0 Polyp of nasal cavity (principal)
CPT/HCPCS: 70486